=== PATIENT | female | born 1990 | race Caucasian/White ===

== ENCOUNTER 2017-12-12 00:21 | Inpatient (IN) | payer OTHER ==
[~2017-12-12] VITALS: Ht 154.9 cm; Wt 78.9 kg
[2017-12-12] VITALS (7 sets, daily range): BP systolic 115–147; BP diastolic 72–94
[2017-12-12] MEDS: MORPHINE SULFATE 2 MG/ML VIAL. IV PRN ×3 (01:40→20:02)
[2017-12-12] MEDS: ONDANSETRON PF 4 MG/2 ML VIAL. IV PRN ×2 (01:40→22:32)
[2017-12-12] MEDS: IV NORMAL SALINE 1000ML BAG 1,000 ML IV SCH ×3 (01:42→20:01)
[2017-12-12 02:19] LABS: U PREG PATIENT NEGATIVE (NEG)
[2017-12-12] MEDS: CIPROFLOXACIN 400MG PREMIX 200 ML IV SCH ×3 (03:00→19:54)
[2017-12-12] MEDS: ACETAMINOPHEN 325 MG TABLET. PO PRN ×2 (05:21→21:37)
[2017-12-12 05:37] LABS: BASO % 0 % (0-3); EOS # 0.2 x10^3/uL (0.0-0.7); EOS % 2 % (0-3); HEMATOCRIT 35.6 % (36.0-47.0); HEMOGLOBIN 12.6 g/dL (12.0-15.5); LYMPH # 4.6 x10^3/uL (1.0-4.8); LYMPH % 44 % (24-48); MEAN CORPUSCULAR HEMOGLOBIN 30 pg (25-35); MEAN CORPUSCULAR HGB CONC 35 g/dL (31-37); MEAN CORPUSCULAR VOLUME 86 fL (79-100); MONO # 0.6 x10^3/uL (0.0-1.1); MONO % 6 % (0-9); NEUT % 48 % (31-73); PLATELET COUNT 242 x10^3/uL (140-400); RED BLOOD COUNT 4.14 x10^6/uL (3.50-5.40); RED CELL DISTRIBUTION WIDTH 12.9 % (11.5-14.5); WHITE BLOOD COUNT 10.4 x10^3/uL (4.0-11.0)
[2017-12-12] MEDS ORDERED: IV NORMAL SALINE 500ML BAG 500 ML IV ONE (06:00)
[2017-12-12 06:04] LABS: ALBUMIN 3.7 g/dL (3.4-5.0); ALBUMIN/GLOBULIN RATIO 1.1 (1.0-1.7); CALCIUM 8.4 mg/dL (8.5-10.1); CREATININE 0.8 mg/dL (0.6-1.0); GFR 85.4; POTASSIUM 4.2 mmol/L (3.5-5.1); TOTAL BILIRUBIN 0.5 mg/dL (0.2-1.0); TOTAL PROTEIN 7.1 g/dL (6.4-8.2)
[2017-12-12] MEDS ORDERED: IV RINGERS,LACTATED 500ML 500 ML IV ONE (13:45)
--- NOTE | 2017-12-12 13:53 | PDOC2 ---
CONSULT Date of Consult Date of Consult DATE: 12/12/17 TIME: 13:45 Reason for Consult Reason for Consult: symptomatic cholelithiasis Referring Physician Referring Physician: Ye Identification/Chief Complaint Chief Complaint epigastric RUQ pain Source Source: Chart review, Patient History of Present Illness Reason for Visit: 26 yo F with c/o epigastric RUQ pain x 3 days, associated n/V. No previous episodes. Also c/o VELASQUEZ. Seen in [facility]. 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) GI: Irritable bowel disease Rheumatologic: Other (arthritis) Past Surgical History Past Surgical History: , Other (knee and wrist surgery, ) Family History Family History: No Significant Social History Quit (one month ago) ALCOHOL: rare Current Medications Current Medications Current Medications Sodium Chloride 1,000 ml @ 100 mls/hr Q10H IV Last administered on 12/12/17at 09:00; Start 12/12/17 at 02:00 Morphine Sulfate (Morphine Sulfate) 2 mg PRN Q2HR PRN IV SEVERE PAIN Last administered on 12/12/17at 05:13; Start 12/12/17 at 01:30 Ondansetron HCl (Zofran) 4 mg PRN Q4HRS PRN IV NAUSEA/VOMITING 1ST CHOICE Last administered on 12/12/17at 01:40; Start 12/12/17 at 01:30 Metronidazole 100 ml @ 100 mls/hr Q12HR IV Last administered on 12/12/17at 03: 01; Start 12/12/17 at 02:00 Ciprofloxacin/ Dextrose 200 ml @ 200 mls/hr Q12HR IV Last administered on 12/12at 03:00; Start 12/12/17 at 02:00 Acetaminophen (Tylenol) 650 mg PRN Q6HRS PRN PO MILD PAIN / TEMP Last administered on 12/12/17at 05:21; Start 12/12/17 at 05:30 Sodium Chloride 500 ml @ 500 mls/hr 1X ONCE IV Last administered on at 05:39; Start 12/12/17 at 06:00; Stop 12/12/17 at 06:59; Status DC Ondansetron HCl (Zofran) 4 mg PRN Q6HRS PRN IV NAUSEA/VOMITING; Start 12/13/17 at 07:00; Stop 12/13/17 at 18:00 Fentanyl Citrate (Fentanyl 2ml Vial) 25 mcg PRN Q5MIN PRN IV MILD PAIN; Start 12/13/17 at 07:00; Stop 12/13/17 at 18:00 Fentanyl Citrate (Fentanyl 2ml Vial) 50 mcg PRN Q5MIN PRN IV MODERATE TO SEVERE PAIN; Start 12/13/17 at 07:00; Stop 12/13/17 at 18:00 Morphine Sulfate (Morphine Sulfate) 1 mg PRN Q10MIN PRN IV SEVERE PAIN; Start 12/13/17 at 07:00; Stop 12/13/17 at 18:00 Ringer's Solution 1,000 ml @ 30 mls/hr Q24H IV ; Start 12/13/17 at 07:00; Stop 12/13/17 at 18:59 Lidocaine HCl (Xylocaine-Mpf 1% 2ml Vial) 2 ml PRN 1X PRN ID IV START; Start at 07:00; Stop 12/13/17 at 18:00 Hydromorphone HCl (Dilaudid) 0.5 mg PRN Q10MIN PRN IV SEV PAIN, Second choice; Start 12/13/17 at 07:00; Stop 12/13/17 at 18:00 Prochlorperazine Edisylate (Compazine) 5 mg PACU PRN PRN IV NAUSEA, MRX1; Start 12/13/17 at 07:00; Stop 12/13/17 at 18:00 Allergies Allergies: Coded Allergies: aspirin (Verified Allergy, Intermediate, 12/12/17) corn (Verified Allergy, Intermediate, 12/12/17) lactase (Verified Allergy, Intermediate, 12/12/17) lactose (Verified Allergy, Intermediate, 12/12/17) tomato (Verified Allergy, Intermediate, 12/12/17) Uncoded Allergies: spicey foods (Allergy, Intermediate, 12/12/17) ROS HEENT: YES: Heacaches Gastrointestinal: Yes Nausea, Yes Vomiting, Yes Abdominal Pain Physical Exam General: Alert, Oriented X3, Cooperative, mild distress HEENT: Atraumatic Lungs: Normal air movement Abdomen: Soft, Other (TTP RUQ) Extremities: No clubbing, No cyanosis Skin: No rashes, No breakdown Neuro: Normal speech, Sensation intact Psych/Mental Status: Mental status NL, Mood NL Vitals VITALS Vital Signs Date Time Temp Pulse Resp B/P (MAP) Pulse Ox O2 Delivery O2 Flow Rate FiO2 12/12/17 11:00 98.2 97 16 128/85 (99) 96 Room Air 98.2 Labs Labs Laboratory Tests Test 12/12/17 01:30 12/12/17 05:30 Urine Test Negative (NEG) White Blood Count 10.4 x10^3/uL (4.0-11.0) Red Blood Count 4.14 x10^6/uL (3.50-5.40) Hemoglobin 12.6 g/dL (12.0-15.5) Hematocrit 35.6 % (36.0-47.0) Mean Corpuscular Volume 86 fL (79-100) Mean Corpuscular Hemoglobin 30 pg (25-35) Mean Corpuscular Hemoglobin Concent 35 g/dL (31-37) Red Cell Distribution Width 12.9 % (11.5-14.5) Platelet Count 242 x10^3/uL (140-400) Neutrophils (%) (Auto) 48 % (31-73) Lymphocytes (%) (Auto) 44 % (24-48) Monocytes (%) (Auto) 6 % (0-9) Eosinophils (%) (Auto) 2 % (0-3) Basophils (%) (Auto) 0 % (0-3) Neutrophils # (Auto) 5.0 x10^3uL (1.8-7.7) Lymphocytes # (Auto) 4.6 x10^3/uL (1.0-4.8) Monocytes # (Auto) 0.6 x10^3/uL (0.0-1.1) Eosinophils # (Auto) 0.2 x10^3/uL (0.0-0.7) Basophils # (Auto) 0.0 x10^3/uL (0.0-0.2) Sodium Level 139 mmol/L (136-145) Potassium Level 4.2 mmol/L (3.5-5.1) Chloride Level 105 mmol/L (98-107) Carbon Dioxide Level 26 mmol/L (21-32) Anion Gap 8 (6-14) Blood Urea Nitrogen 5 mg/dL (7-20) Creatinine 0.8 mg/dL (0.6-1.0) Estimated GFR (Cockcroft-Gault) 85.4 BUN/Creatinine Ratio 6 (6-20) Glucose Level 94 mg/dL (70-99) Lactic Acid Level 0.9 mmol/L (0.4-2.0) Calcium Level 8.4 mg/dL (8.5-10.1) Total Bilirubin 0.5 mg/dL (0.2-1.0) Aspartate Amino Transf (AST/SGOT) 33 U/L (15-37) Alanine Aminotransferase (ALT/SGPT) 37 U/L (14-59) Alkaline Phosphatase 112 U/L (46-116) Total Protein 7.1 g/dL (6.4-8.2) Albumin 3.7 g/dL (3.4-5.0) Albumin/Globulin Ratio 1.1 (1.0-1.7) Laboratory Tests Test 12/12/17 01:30 12/12/17 05:30 Urine Test Negative (NEG) White Blood Count 10.4 x10^3/uL (4.0-11.0) Red Blood Count 4.14 x10^6/uL (3.50-5.40) Hemoglobin 12.6 g/dL (12.0-15.5) Hematocrit 35.6 % (36.0-47.0) Mean Corpuscular Volume 86 fL (79-100) Mean Corpuscular Hemoglobin 30 pg (25-35) Mean Corpuscular Hemoglobin Concent 35 g/dL (31-37) Red Cell Distribution Width 12.9 % (11.5-14.5) Platelet Count 242 x10^3/uL (140-400) Neutrophils (%) (Auto) 48 % (31-73) Lymphocytes (%) (Auto) 44 % (24-48) Monocytes (%) (Auto) 6 % (0-9) Eosinophils (%) (Auto) 2 % (0-3) Basophils (%) (Auto) 0 % (0-3) Neutrophils # (Auto) 5.0 x10^3uL (1.8-7.7) Lymphocytes # (Auto) 4.6 x10^3/uL (1.0-4.8) Monocytes # (Auto) 0.6 x10^3/uL (0.0-1.1) Eosinophils # (Auto) 0.2 x10^3/uL (0.0-0.7) Basophils # (Auto) 0.0 x10^3/uL (0.0-0.2) Sodium Level 139 mmol/L (136-145) Potassium Level 4.2 mmol/L (3.5-5.1) Chloride Level 105 mmol/L (98-107) Carbon Dioxide Level 26 mmol/L (21-32) Anion Gap 8 (6-14) Blood Urea Nitrogen 5 mg/dL (7-20) Creatinine 0.8 mg/dL (0.6-1.0) Estimated GFR (Cockcroft-Gault) 85.4 BUN/Creatinine Ratio 6 (6-20) Glucose Level 94 mg/dL (70-99) Lactic Acid Level 0.9 mmol/L (0.4-2.0) Calcium Level 8.4 mg/dL (8.5-10.1) Total Bilirubin 0.5 mg/dL (0.2-1.0) Aspartate Amino Transf (AST/SGOT) 33 U/L (15-37) Alanine Aminotransferase (ALT/SGPT) 37 U/L (14-59) Alkaline Phosphatase 112 U/L (46-116) Total Protein 7.1 g/dL (6.4-8.2) Albumin 3.7 g/dL (3.4-5.0) Albumin/Globulin Ratio 1.1 (1.0-1.7) Images Images US at [facility]-gallstones, fatty liver, mildly dilated CBD Assessment/Plan Assessment/Plan Symptomatic cholelithiasis Suspect pain is secondary to calculous cholecystitis, however, given past comorbidity, recommend CT head and cards evaluation prior to surgery. Will continue IV abx and plan surgery in Am. WBC improved over [facility]. Will also check lipase. R/R/B/A d/w pt for laparoscopic cholecystectomy with cholangiogram in Am 12/13- 1029. Risks, including, but not limited to: bleeding, infection, damage to surrounding structures, risk of anesthesia, risk of open. She appears to understand, her questions are answered and she elects to proceed. Thanks for consult! DANIELLA BEGUM MD Dec 12, 2017 13:53
--- NOTE | 2017-12-12 14:35 | RAD ---
CT of the head without contrast, 12/12/2017: HISTORY: Headache, known AVM No previous studies are available at this time for comparison purposes. The ventricles are within normal limits in size. There is no shift of the midline structures. There is no evidence of acute intracranial hemorrhage or mass effect. IMPRESSION: The CT of the head without contrast reveals no significant abnormality. Electronically signed by: Ramsey Elam MD (12/12/2017 2:32 PM) [facility] [place]
--- NOTE | 2017-12-12 14:56 | PDOC1 ---
History and Physical Date of Admission Date of Admission 12/11/18 Identification/Chief Complaint Chief Complaint abd pain Source Source: Chart review, Patient History of Present Illness History of Present Illness 26yo F, came for abd pain x1d. Pt started to feel RUQ pain, constant, sharp, 5/10 from yesterday, no radiating , had non bloody or bile N/V, bm is ok. no fever, + chills. no cough ,sob, chest pain. remote h/o stroke when delivery her baby, no neurologic deficit. US at [facility] ER showed cholelithiasis. 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) GI: Irritable bowel disease Rheumatologic: Other (arthritis) Past Surgical History Past Surgical History: , Other (knee and wrist surgery, ) Family History Family History: No Significant Social History Smoke: No ALCOHOL: rare Current Medications Current Medications Current Medications Medications (Trade) Dose Ordered Sig/Amarilis Start Time Stop Time Status Last Admin Dose Admin Acetaminophen (Tylenol) 650 mg PRN Q6HRS PRN 12/12/17 05:30 12/12/17 05:21 650 MG Cefazolin Sodium/ Dextrose 50 ml @ 100 mls/hr 1X PREOP 12/12/17 13:45 Ciprofloxacin/ Dextrose 200 ml @ 200 mls/hr Q12HR 12/12/17 02:00 12/12/17 03:00 200 MLS/HR Fentanyl Citrate (Fentanyl 2ml Vial) 50 mcg PRN Q5MIN PRN 12/13/17 07:00 12/13/17 18:00 Hydromorphone HCl (Dilaudid) 0.5 mg PRN Q10MIN PRN 12/13/17 07:00 12/13/17 18:00 Lidocaine HCl (Xylocaine-Mpf 1% 2ml Vial) 2 ml PRN 1X PRN 12/13/17 07:00 12/13/17 18:00 Metronidazole 100 ml @ 100 mls/hr Q12HR 12/12/17 02:00 12/12/17 03:01 100 MLS/HR Morphine Sulfate (Morphine Sulfate) 1 mg PRN Q10MIN PRN 12/13/17 07:00 12/13/17 18:00 Ondansetron HCl (Zofran) 4 mg PRN Q6HRS PRN 12/13/17 07:00 12/13/17 18:00 Prochlorperazine Edisylate (Compazine) 5 mg PACU PRN PRN 12/13/17 07:00 12/13/17 18:00 Ringer's Solution 500 ml @ 500 mls/hr 1X ONCE 12/12/17 13:45 12/12/17 14:44 DC Sodium Chloride 500 ml @ 500 mls/hr 1X ONCE 12/12/17 06:00 12/12/17 06:59 DC 12/12/17 05:39 500 MLS/HR Allergies Allergies Allergies Coded Allergies Type Severity Reaction Last Updated Verified aspirin Allergy Intermediate 12/12/17 Yes corn Allergy Intermediate 12/12/17 Yes lactase Allergy Intermediate 12/12/17 Yes lactose Allergy Intermediate 12/12/17 Yes tomato Allergy Intermediate 12/12/17 Yes Uncoded Allergies Type Severity Reaction Last Updated Verified spicey foods Allergy Intermediate 12/12/17 ROS Review of System CONSTITUTIONAL: No fever or chills EYES: No recent changes SKIN: No rash or itching CARDIOVASCULAR: No chest pain, syncope, palpitations, or edema RESPIRATORY: No SOB or cough GASTROINTESTINAL: No nausea, vomiting or abdominal pain NEUROLOGICAL: No headaches or weakness ENDOCRINE: No cold or heat intolerance GENITOURINARY: No urgency or frequency of urination MUSCULOSKELETAL: No back pain or joint pain LYMPHATICS: No enlarged lymph nodes PSYCHIATRIC: No anxiety or depression Physical Exam Physical Exam GEN.: No apparent distress. Alert and oriented. HEENT: Head is normocephalic, atraumatic NECK: Supple. LUNGS: Clear to auscultation. HEART: RRR, S1, S2 present. Peripheral pulses intact ABDOMEN: Soft, Positive bowel sounds. difuse abd pain, most at RUQ. no guarding or rebound. EXTREMITIES: Without any cyanosis. NEUROLOGIC: Normal speech, normal tone PSYCHIATRIC: Normal affect, normal mood. SKIN: No ulcerations Vitals Vitals Vital Signs Date Time Temp Pulse Resp B/P (MAP) Pulse Ox O2 Delivery O2 Flow Rate FiO2 12/12/17 11:00 98.2 97 16 128/85 (99) 96 Room Air 98.2 Labs Labs Laboratory Tests Test 12/12/17 01:30 12/12/17 05:30 Urine Test Negative (NEG) White Blood Count 10.4 x10^3/uL (4.0-11.0) Red Blood Count 4.14 x10^6/uL (3.50-5.40) Hemoglobin 12.6 g/dL (12.0-15.5) Hematocrit 35.6 % (36.0-47.0) Mean Corpuscular Volume 86 fL (79-100) Mean Corpuscular Hemoglobin 30 pg (25-35) Mean Corpuscular Hemoglobin Concent 35 g/dL (31-37) Red Cell Distribution Width 12.9 % (11.5-14.5) Platelet Count 242 x10^3/uL (140-400) Neutrophils (%) (Auto) 48 % (31-73) Lymphocytes (%) (Auto) 44 % (24-48) Monocytes (%) (Auto) 6 % (0-9) Eosinophils (%) (Auto) 2 % (0-3) Basophils (%) (Auto) 0 % (0-3) Neutrophils # (Auto) 5.0 x10^3uL (1.8-7.7) Lymphocytes # (Auto) 4.6 x10^3/uL (1.0-4.8) Monocytes # (Auto) 0.6 x10^3/uL (0.0-1.1) Eosinophils # (Auto) 0.2 x10^3/uL (0.0-0.7) Basophils # (Auto) 0.0 x10^3/uL (0.0-0.2) Sodium Level 139 mmol/L (136-145) Potassium Level 4.2 mmol/L (3.5-5.1) Chloride Level 105 mmol/L (98-107) Carbon Dioxide Level 26 mmol/L (21-32) Anion Gap 8 (6-14) Blood Urea Nitrogen 5 mg/dL (7-20) Creatinine 0.8 mg/dL (0.6-1.0) Estimated GFR (Cockcroft-Gault) 85.4 BUN/Creatinine Ratio 6 (6-20) Glucose Level 94 mg/dL (70-99) Lactic Acid Level 0.9 mmol/L (0.4-2.0) Calcium Level 8.4 mg/dL (8.5-10.1) Total Bilirubin 0.5 mg/dL (0.2-1.0) Aspartate Amino Transf (AST/SGOT) 33 U/L (15-37) Alanine Aminotransferase (ALT/SGPT) 37 U/L (14-59) Alkaline Phosphatase 112 U/L (46-116) Total Protein 7.1 g/dL (6.4-8.2) Albumin 3.7 g/dL (3.4-5.0) Albumin/Globulin Ratio 1.1 (1.0-1.7) Lipase 148 U/L (73-393) Laboratory Tests Test 12/12/17 01:30 12/12/17 05:30 Urine Test Negative (NEG) White Blood Count 10.4 x10^3/uL (4.0-11.0) Red Blood Count 4.14 x10^6/uL (3.50-5.40) Hemoglobin 12.6 g/dL (12.0-15.5) Hematocrit 35.6 % (36.0-47.0) Mean Corpuscular Volume 86 fL (79-100) Mean Corpuscular Hemoglobin 30 pg (25-35) Mean Corpuscular Hemoglobin Concent 35 g/dL (31-37) Red Cell Distribution Width 12.9 % (11.5-14.5) Platelet Count 242 x10^3/uL (140-400) Neutrophils (%) (Auto) 48 % (31-73) Lymphocytes (%) (Auto) 44 % (24-48) Monocytes (%) (Auto) 6 % (0-9) Eosinophils (%) (Auto) 2 % (0-3) Basophils (%) (Auto) 0 % (0-3) Neutrophils # (Auto) 5.0 x10^3uL (1.8-7.7) Lymphocytes # (Auto) 4.6 x10^3/uL (1.0-4.8) Monocytes # (Auto) 0.6 x10^3/uL (0.0-1.1) Eosinophils # (Auto) 0.2 x10^3/uL (0.0-0.7) Basophils # (Auto) 0.0 x10^3/uL (0.0-0.2) Sodium Level 139 mmol/L (136-145) Potassium Level 4.2 mmol/L (3.5-5.1) Chloride Level 105 mmol/L (98-107) Carbon Dioxide Level 26 mmol/L (21-32) Anion Gap 8 (6-14) Blood Urea Nitrogen 5 mg/dL (7-20) Creatinine 0.8 mg/dL (0.6-1.0) Estimated GFR (Cockcroft-Gault) 85.4 BUN/Creatinine Ratio 6 (6-20) Glucose Level 94 mg/dL (70-99) Lactic Acid Level 0.9 mmol/L (0.4-2.0) Calcium Level 8.4 mg/dL (8.5-10.1) Total Bilirubin 0.5 mg/dL (0.2-1.0) Aspartate Amino Transf (AST/SGOT) 33 U/L (15-37) Alanine Aminotransferase (ALT/SGPT) 37 U/L (14-59) Alkaline Phosphatase 112 U/L (46-116) Total Protein 7.1 g/dL (6.4-8.2) Albumin 3.7 g/dL (3.4-5.0) Albumin/Globulin Ratio 1.1 (1.0-1.7) Lipase 148 U/L (73-393) VTE Prophylaxis Ordered VTE Prophylaxis Devices: Yes VTE Pharmacological Prophylaxi: Yes Assessment/Plan Assessment/Plan ABD pain with cholelithiasis possible acute cholecystitis morbid obesity h/o stroke wo deficit h/o seizure plan: fu with sx, sx tmr card consult pre op ivf clear liquid diet pain control dvt ppx NPO MN head ct neg. DAVID SOTELO MD Dec 12, 2017 14:56
[2017-12-12] MEDS: HEPARIN PF for SUB-Q USE 5,000 UNIT/0.5 ML VIAL. SQ SCH ×2 (15:00→19:56)
--- NOTE | 2017-12-12 15:06 | EKG ---
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
--- NOTE | 2017-12-12 15:15 | PDOC2 ---
CARDIAC CONSULT DATE OF CONSULT Date of Consult DATE: 12/12/17 TIME: 14:59 REASON FOR CONSULT Reason for Consult: Hx of stroke surgery planned. REFERRING PHYSICIAN Referring Physician: Thompson SOURCE Source: Chart review, Patient HISTORY OF PRESENT ILLNESS HISTORY OF PRESENT ILLNESS This ia a pleasant 26 yo female admitted for complains of nausea and vomiting and abdominal pain. Reports that she Went to [facility] and was noted with gallstones and needing lap viridiana. Consult ifor hx of stroke and this occurred in 2012 with her and end up with C section. No significant explanation in regards to her stroke but was later found 2 yrs later that she has an AVM in her brain. she also has hx of seizures and has 3 medications for it including depakote. she also sustained some cystic sac injury from epidural in her lower back from that . She does not have any cardiac history. No CP, SOA and no exertional CP nor ESCAMILLA. PAST MEDICAL HISTORY Cardiovascular: No pertinent hx Pulmonary: No pertinent hx CENTRAL NERVOUS SYSTEM: CVA (related to and later noted with AVM) GI: No pertinent hx Heme/Onc: No pertinent hx Hepatobiliary: Cholelithiasis Psych: No pertinent hx Musculoskeletal: Other (None) Rheumatologic: No pertinent hx Infectious disease: No pertinent hx ENT: No pertinent hx Renal/: No pertinent hx Endocrine: No pertinent hx Dermatology: No pertinent hx PAST SURGICAL HISTORY Past Surgical History: , Tonsillectomy, Other (left knee and left wirst repair) FAMILY HISTORY Family History noncontributory SOCIAL HISTORY Smoke: Quit (last ) ALCOHOL: none Drugs: None Lives: with Family CURRENT MEDICATIONS CURRENT MEDICATIONS Current Medications Medications (Trade) Dose Ordered Sig/Amarilis Route PRN Reason Start Time Stop Time Status Last Admin Dose Admin Sodium Chloride 1,000 ml @ 100 mls/hr Q10H IV 12/12/17 02:00 12/12/17 09:00 Morphine Sulfate (Morphine Sulfate) 2 mg PRN Q2HR PRN IV SEVERE PAIN 12/12/17 01:30 12/12/17 05:13 Ondansetron HCl (Zofran) 4 mg PRN Q4HRS PRN IV NAUSEA/VOMITING 1ST CHOICE 12/12/17 01:30 12/12/17 01:40 Metronidazole 100 ml @ 100 mls/hr Q12HR IV 12/12/17 02:00 12/12/17 03:01 Ciprofloxacin/ Dextrose 200 ml @ 200 mls/hr Q12HR IV 12/12/17 02:00 12/12/17 03:00 Acetaminophen (Tylenol) 650 mg PRN Q6HRS PRN PO MILD PAIN / TEMP 12/12/17 05:30 12/12/17 05:21 Sodium Chloride 500 ml @ 500 mls/hr 1X ONCE IV 12/12/17 06:00 12/12/17 06:59 DC 12/12/17 05:39 ALLERGIES ALLERGIES: Coded Allergies: aspirin (Verified Allergy, Intermediate, 12/12/17) corn (Verified Allergy, Intermediate, 12/12/17) lactase (Verified Allergy, Intermediate, 12/12/17) lactose (Verified Allergy, Intermediate, 12/12/17) tomato (Verified Allergy, Intermediate, 12/12/17) Uncoded Allergies: spicey foods (Allergy, Intermediate, 12/12/17) ROS Review of System 14 point ROS evaluated with pertinent positives noted per HPI PHYSICAL EXAM General: Alert, Oriented X3, Cooperative, No acute distress HEENT: Atraumatic, Mucous membr. moist/pink Lungs: Clear to auscultation, Normal air movement Heart: Regular rate (SR), Normal S1, Normal S2, No murmurs Abdomen: Soft, Other (RUQ tenderness) Extremities: No cyanosis, No edema Skin: No breakdown, No significant lesion Neuro: Normal speech, Sensation intact Psych/Mental Status: Mental status NL, Mood NL MUSCULOSKELETAL: Full range of motion without pain VITALS VITALS Vital Signs Date Time Temp Pulse Resp B/P (MAP) Pulse Ox O2 Delivery O2 Flow Rate FiO2 12/12/17 11:00 98.2 97 16 128/85 (99) 96 Room Air 98.2 LABS Lab: Laboratory Tests Test 12/12/17 01:30 12/12/17 05:30 Urine Test Negative (NEG) White Blood Count 10.4 x10^3/uL (4.0-11.0) Red Blood Count 4.14 x10^6/uL (3.50-5.40) Hemoglobin 12.6 g/dL (12.0-15.5) Hematocrit 35.6 % (36.0-47.0) Mean Corpuscular Volume 86 fL (79-100) Mean Corpuscular Hemoglobin 30 pg (25-35) Mean Corpuscular Hemoglobin Concent 35 g/dL (31-37) Red Cell Distribution Width 12.9 % (11.5-14.5) Platelet Count 242 x10^3/uL (140-400) Neutrophils (%) (Auto) 48 % (31-73) Lymphocytes (%) (Auto) 44 % (24-48) Monocytes (%) (Auto) 6 % (0-9) Eosinophils (%) (Auto) 2 % (0-3) Basophils (%) (Auto) 0 % (0-3) Neutrophils # (Auto) 5.0 x10^3uL (1.8-7.7) Lymphocytes # (Auto) 4.6 x10^3/uL (1.0-4.8) Monocytes # (Auto) 0.6 x10^3/uL (0.0-1.1) Eosinophils # (Auto) 0.2 x10^3/uL (0.0-0.7) Basophils # (Auto) 0.0 x10^3/uL (0.0-0.2) Sodium Level 139 mmol/L (136-145) Potassium Level 4.2 mmol/L (3.5-5.1) Chloride Level 105 mmol/L (98-107) Carbon Dioxide Level 26 mmol/L (21-32) Anion Gap 8 (6-14) Blood Urea Nitrogen 5 mg/dL (7-20) Creatinine 0.8 mg/dL (0.6-1.0) Estimated GFR (Cockcroft-Gault) 85.4 BUN/Creatinine Ratio 6 (6-20) Glucose Level 94 mg/dL (70-99) Lactic Acid Level 0.9 mmol/L (0.4-2.0) Calcium Level 8.4 mg/dL (8.5-10.1) Total Bilirubin 0.5 mg/dL (0.2-1.0) Aspartate Amino Transf (AST/SGOT) 33 U/L (15-37) Alanine Aminotransferase (ALT/SGPT) 37 U/L (14-59) Alkaline Phosphatase 112 U/L (46-116) Total Protein 7.1 g/dL (6.4-8.2) Albumin 3.7 g/dL (3.4-5.0) Albumin/Globulin Ratio 1.1 (1.0-1.7) Lipase 148 U/L (73-393) ASSESSMENT/PLAN ASSESSMENT/PLAN 1. Preop cardiac eval: METS>10, no cardiac symptoms. Low risk for perioperative CV events for noncardiac surgery. She is medically satisfactory to proceed with lap viridiana. Baseline EKG. 2. Hx of stroke related to her in 2012 and later noted with AVM 3. Hx of seizure: on 3 seizure meds and was last seen by neurology at [place] >1 yr ago. Would recommend neurology consult. SAIMA ROJAS AUDIOVISUAL TECHNICIAN Dec 12, 2017 15:15
--- NOTE | 2017-12-12 16:31 | CARD ---
MR#: [id number] Date of Study: 12/12/2017 Ordering Physician: KITA MADRIGAL, Referring Physician: THAO TYSON, Tech: Shannon Lezama HALLIE APPROVED REPORT EXAM: Two-dimensional and M-mode echocardiogram with Doppler and color Doppler. Other Information Quality : Good INDICATION Pre-Op 2D DIMENSIONS RVDd2.7 (2.9-3.5cm)Left Atrium(2D)3.1 (1.6-4.0cm) IVSd0.9 (0.7-1.1cm)Aortic Root(2D)2.6 (2.0-3.7cm) LVDd5.3 (3.9-5.9cm)LVOT Diameter2.0 (1.8-2.4cm) PWd0.8 (0.7-1.1cm)LVDs3.3 (2.5-4.0cm) FS (%) 30.0 %SV90.6 ml LVEF(%)60.0 (>50%) Aortic Valve AoV Peak Myron.117.9cm/sAoV VTI23.9cm AO Peak GR.5.6mmHgLVOT Peak Myron.114.8cm/s LVOT VTI 23.51cmAO Mean GR.3mmHg CA (VMAX)3.22qh6UBN (VTI)3.05cm2 Mitral Valve MV E Aybmtavt29.9cm/sMV DECEL [id number] MV A Hdpluxyk28.0cm/sMV QRH20mj E/A Ratio1.5MVA (PHT)2.79cm2 TDI E/Medial E'7.4 Tricuspid Valve TR P. Nbpzzyrn359uf/sRAP HNQWBAWK0tgLk TR Peak Gr.82lgBbQBGA49seAf Pulmonary Vein S1 Gffqidua41.1cm/sD2 Isnqbydz85.0cm/s LEFT VENTRICLE The left ventricle is normal size. There is normal left ventricular wall thickness. The left ventricu lar systolic function is normal and the ejection fraction is within normal range. The Ejection Fracti on is 55-60%. There is normal LV segmental wall motion. Transmitral Doppler flow pattern is Grade II- pseudonormal filling dynamics. RIGHT VENTRICLE The right ventricle is normal size. The right ventricular systolic function is normal. ATRIA The left atrium size is normal. The right atrium size is normal. The interatrial septum is intact wit h no evidence for an atrial septal defect or patent foramen ovale as noted on 2-D or Doppler imaging. AORTIC VALVE The aortic valve is calcified but opens well. Doppler and Color Flow revealed no significant aortic r egurgitation. There is no significant aortic valvular stenosis. MITRAL VALVE The mitral valve is normal in structure and function. There is no evidence of mitral valve prolapse. There is no mitral valve stenosis. Doppler and Color-flow revealed mild mitral regurgitation. TRICUSPID VALVE The tricuspid valve is normal in structure and function. Doppler and Color Flow revealed trace tricus pid regurgitation. The PA pressure was estimated at 16 mmHg. There is no tricuspid valve stenosis. PULMONIC VALVE The pulmonary valve is normal in structure and function. Doppler and Color Flow revealed trace pulmon ic valvular regurgitation. There is no pulmonic valvular stenosis. GREAT VESSELS The aortic root is normal in size. The ascending aorta is normal in size. The IVC is normal in size a nd collapses >50% with inspiration. PERICARDIAL EFFUSION There is no evidence of significant pericardial effusion. Critical Notification Critical Value: No <Conclusion> The left ventricle is normal size. The left ventricular systolic function is normal and the ejection fraction is within normal range. The Ejection Fraction is 55-60%. There is no significant aortic valvular stenosis. Doppler and Color Flow revealed no significant aortic regurgitation. Doppler and Color-flow revealed mild mitral regurgitation. Doppler and Color Flow revealed trace tricuspid regurgitation. The PA pressure was estimated at 16 mmHg. Signed by : Kita Madrigal MD Electronically Approved : 12/12/2017 16:29:56
[2017-12-12] MEDS ORDERED: HYDR50CA PO (17:08)
[2017-12-12] MEDS ORDERED: OXCA300T19 PO (17:08)
[2017-12-12] MEDS ORDERED: CELE100C PO (17:08)
[2017-12-12] MEDS ORDERED: TIZA4TAB PO (17:08)
[2017-12-12] MEDS ORDERED: VORT10TA PO (17:08)
[2017-12-12] MEDS ORDERED: BACL10TA PO (17:08)
[2017-12-12] MEDS: OXcarbazepine 300 MG TABLET PO SCH (19:59)
[2017-12-12] MEDS: HYDROcodone/APAP 5/325MG 1 TAB TABLET PO PRN (20:01)
[2017-12-12] MEDS: Vortioxetine Hydrobromide (Trintellix) 10 MG PO SCH (20:02)
[2017-12-13] VITALS (9 sets, daily range): BP systolic 123–141; BP diastolic 72–88
[2017-12-13 04:28] LABS: BASO % 0 % (0-3); EOS # 0.2 x10^3/uL (0.0-0.7); EOS % 3 % (0-3); HEMATOCRIT 34.9 % (36.0-47.0); LYMPH # 3.5 x10^3/uL (1.0-4.8); LYMPH % 46 % (24-48); MEAN CORPUSCULAR HEMOGLOBIN 30 pg (25-35); MEAN CORPUSCULAR HGB CONC 34 g/dL (31-37); MEAN CORPUSCULAR VOLUME 87 fL (79-100); MONO # 0.3 x10^3/uL (0.0-1.1); MONO % 5 % (0-9); NEUT # 3.6 x10^3uL (1.8-7.7); NEUT % 47 % (31-73); PLATELET COUNT 227 x10^3/uL (140-400); RED BLOOD COUNT 4.01 x10^6/uL (3.50-5.40); WHITE BLOOD COUNT 7.6 x10^3/uL (4.0-11.0)
[2017-12-13 05:23] LABS: ALBUMIN 3.5 g/dL (3.4-5.0); CALCIUM 8.4 mg/dL (8.5-10.1); CREATININE 0.7 mg/dL (0.6-1.0); DIRECT BILIRUBIN 0.3 mg/dL (0.0-0.2); GFR 99.6; POTASSIUM 3.8 mmol/L (3.5-5.1); TOTAL BILIRUBIN 0.6 mg/dL (0.2-1.0); TOTAL PROTEIN 6.7 g/dL (6.4-8.2)
[2017-12-13] MEDS: IV NORMAL SALINE 1000ML BAG 1,000 ML IV SCH ×2 (05:37→18:00)
[2017-12-13] MEDS: HEPARIN PF for SUB-Q USE 5,000 UNIT/0.5 ML VIAL. SQ SCH ×3 (05:45→22:00)
[2017-12-13] MEDS ORDERED: LIDOCAINE 1% PF 2 ML VIAL. ID PRN (07:00)
[2017-12-13] MEDS ORDERED: ONDANSETRON PF 4 MG/2 ML VIAL. IV PRN (07:00)
[2017-12-13] MEDS ORDERED: PROCHLORPERAZINE 10 MG/2 ML VIAL. IV PRN (07:00)
[2017-12-13] MEDS ORDERED: IV RINGERS,LACTATED 1000ML 1,000 ML IV SCH (07:00)
[2017-12-13] MEDS ORDERED: fentaNYL PF VIAL 100 MCG/2 ML VIAL IV PRN (07:00)
[2017-12-13] MEDS ORDERED: HYDROmorphone 2 MG/ML VIAL IV PRN (07:00)
[2017-12-13] MEDS: CIPROFLOXACIN 400MG PREMIX 200 ML IV SCH ×2 (07:56→20:24)
[2017-12-13] MEDS ORDERED: BISACODYL 10 MG SUPP.RECT. ONE (09:12)
[2017-12-13] MEDS ORDERED: SURGICEL HEMOSTAT 2X3 EACH. ONE (09:12)
[2017-12-13] MEDS ORDERED: IOHEXOL 300 MG/ML 100ML VIAL. ONE (09:12)
[2017-12-13] MEDS ORDERED: BUPIVAC MPF-EPI 0.5%-1:200000 30 ML VIAL. ONE (09:12)
[2017-12-13] MEDS ORDERED: ONDANSETRON PF 4 MG/2 ML VIAL. ONE (09:40)
[2017-12-13] MEDS ORDERED: DEXAMETHASONE SOD PHOS 20 MG/5 ML VIAL. ONE (09:40)
[2017-12-13] MEDS ORDERED: PROPOFOL 20 ML IV ONE (09:40)
[2017-12-13] MEDS ORDERED: fentaNYL PF VIAL 100 MCG/2 ML VIAL ONE ×4 (09:40→12:56)
[2017-12-13] MEDS ORDERED: ROCURONIUM 50 MG/5 ML VIAL. ONE (09:40)
[2017-12-13] MEDS ORDERED: MIDAZOLAM HCL/PF 2 MG/2 ML VIAL. ONE (09:41)
[2017-12-13] MEDS ORDERED: SUCCINYLCHOLINE 200 MG/10 ML VIAL. ONE (10:52)
--- NOTE | 2017-12-13 10:52 | PDOC ---
SURGICAL PROGRESS NOTE Subjective Pre-Op Note 26 yo F with symptomatic cholelithiasis TO OR for laparoscopic versus open cholecystectomy with cholangiogram R/R/B/A d/w pt. Risks, including, but not limited to: bleeding, infection, damage to surrounding structures, risk of anesthesia, risk of open. She appears to understand, her questions are answered and she elects to proceed. Appreciate cards eval, CT head negative. Vital Signs Vital Signs Date Time Temp Pulse Resp B/P (MAP) Pulse Ox O2 Delivery O2 Flow Rate FiO2 12/13/17 09:45 97.7 84 14 123/80 97 Room Air 97.7 I&O Intake and Output 12/13/17 07:00 Intake Total 0 ml Balance 0 ml Intake Oral 0 ml # Voids 8 Labs Laboratory Tests Test 12/12/17 01:30 12/12/17 05:30 12/13/17 03:15 Urine Test Negative (NEG) White Blood Count 10.4 x10^3/uL (4.0-11.0) 7.6 x10^3/uL (4.0-11.0) Red Blood Count 4.14 x10^6/uL (3.50-5.40) 4.01 x10^6/uL (3.50-5.40) Hemoglobin 12.6 g/dL (12.0-15.5) 12.0 g/dL (12.0-15.5) Hematocrit 35.6 % (36.0-47.0) 34.9 % (36.0-47.0) Mean Corpuscular Volume 86 fL (79-100) 87 fL (79-100) Mean Corpuscular Hemoglobin 30 pg (25-35) 30 pg (25-35) Mean Corpuscular Hemoglobin Concent 35 g/dL (31-37) 34 g/dL (31-37) Red Cell Distribution Width 12.9 % (11.5-14.5) 13.0 % (11.5-14.5) Platelet Count 242 x10^3/uL (140-400) 227 x10^3/uL (140-400) Neutrophils (%) (Auto) 48 % (31-73) 47 % (31-73) Lymphocytes (%) (Auto) 44 % (24-48) 46 % (24-48) Monocytes (%) (Auto) 6 % (0-9) 5 % (0-9) Eosinophils (%) (Auto) 2 % (0-3) 3 % (0-3) Basophils (%) (Auto) 0 % (0-3) 0 % (0-3) Neutrophils # (Auto) 5.0 x10^3uL (1.8-7.7) 3.6 x10^3uL (1.8-7.7) Lymphocytes # (Auto) 4.6 x10^3/uL (1.0-4.8) 3.5 x10^3/uL (1.0-4.8) Monocytes # (Auto) 0.6 x10^3/uL (0.0-1.1) 0.3 x10^3/uL (0.0-1.1) Eosinophils # (Auto) 0.2 x10^3/uL (0.0-0.7) 0.2 x10^3/uL (0.0-0.7) Basophils # (Auto) 0.0 x10^3/uL (0.0-0.2) 0.0 x10^3/uL (0.0-0.2) Sodium Level 139 mmol/L (136-145) 140 mmol/L (136-145) Potassium Level 4.2 mmol/L (3.5-5.1) 3.8 mmol/L (3.5-5.1) Chloride Level 105 mmol/L (98-107) 105 mmol/L (98-107) Carbon Dioxide Level 26 mmol/L (21-32) 23 mmol/L (21-32) Anion Gap 8 (6-14) 12 (6-14) Blood Urea Nitrogen 5 mg/dL (7-20) 4 mg/dL (7-20) Creatinine 0.8 mg/dL (0.6-1.0) 0.7 mg/dL (0.6-1.0) Estimated GFR (Cockcroft-Gault) 85.4 99.6 BUN/Creatinine Ratio 6 (6-20) Glucose Level 94 mg/dL (70-99) 86 mg/dL (70-99) Lactic Acid Level 0.9 mmol/L (0.4-2.0) Calcium Level 8.4 mg/dL (8.5-10.1) 8.4 mg/dL (8.5-10.1) Total Bilirubin 0.5 mg/dL (0.2-1.0) 0.6 mg/dL (0.2-1.0) Aspartate Amino Transf (AST/SGOT) 33 U/L (15-37) 44 U/L (15-37) Alanine Aminotransferase (ALT/SGPT) 37 U/L (14-59) 49 U/L (14-59) Alkaline Phosphatase 112 U/L (46-116) 109 U/L (46-116) Total Protein 7.1 g/dL (6.4-8.2) 6.7 g/dL (6.4-8.2) Albumin 3.7 g/dL (3.4-5.0) 3.5 g/dL (3.4-5.0) Albumin/Globulin Ratio 1.1 (1.0-1.7) Lipase 148 U/L (73-393) Direct Bilirubin 0.3 mg/dL (0.0-0.2) Laboratory Tests Test 12/13/17 03:15 White Blood Count 7.6 x10^3/uL (4.0-11.0) Red Blood Count 4.01 x10^6/uL (3.50-5.40) Hemoglobin 12.0 g/dL (12.0-15.5) Hematocrit 34.9 % (36.0-47.0) Mean Corpuscular Volume 87 fL (79-100) Mean Corpuscular Hemoglobin 30 pg (25-35) Mean Corpuscular Hemoglobin Concent 34 g/dL (31-37) Red Cell Distribution Width 13.0 % (11.5-14.5) Platelet Count 227 x10^3/uL (140-400) Neutrophils (%) (Auto) 47 % (31-73) Lymphocytes (%) (Auto) 46 % (24-48) Monocytes (%) (Auto) 5 % (0-9) Eosinophils (%) (Auto) 3 % (0-3) Basophils (%) (Auto) 0 % (0-3) Neutrophils # (Auto) 3.6 x10^3uL (1.8-7.7) Lymphocytes # (Auto) 3.5 x10^3/uL (1.0-4.8) Monocytes # (Auto) 0.3 x10^3/uL (0.0-1.1) Eosinophils # (Auto) 0.2 x10^3/uL (0.0-0.7) Basophils # (Auto) 0.0 x10^3/uL (0.0-0.2) Sodium Level 140 mmol/L (136-145) Potassium Level 3.8 mmol/L (3.5-5.1) Chloride Level 105 mmol/L (98-107) Carbon Dioxide Level 23 mmol/L (21-32) Anion Gap 12 (6-14) Blood Urea Nitrogen 4 mg/dL (7-20) Creatinine 0.7 mg/dL (0.6-1.0) Estimated GFR (Cockcroft-Gault) 99.6 Glucose Level 86 mg/dL (70-99) Calcium Level 8.4 mg/dL (8.5-10.1) Total Bilirubin 0.6 mg/dL (0.2-1.0) Direct Bilirubin 0.3 mg/dL (0.0-0.2) Aspartate Amino Transf (AST/SGOT) 44 U/L (15-37) Alanine Aminotransferase (ALT/SGPT) 49 U/L (14-59) Alkaline Phosphatase 109 U/L (46-116) Total Protein 6.7 g/dL (6.4-8.2) Albumin 3.5 g/dL (3.4-5.0) DANIELLA BEGUM MD Dec 13, 2017 10:52
[2017-12-13] MEDS ORDERED: HEPARIN 1,000 UNIT in IV NORMAL SALINE 1,000 ML for SURG PERIOP IRR ONE (11:00)
[2017-12-13] MEDS ORDERED: NEOSTIGMINE METHYLSULFATE 5 MG/5 ML SYRINGE. ONE (11:34)
[2017-12-13] MEDS ORDERED: GLYCOPYRROLATE 1 MG/5 ML VIAL. ONE (11:34)
--- NOTE | 2017-12-13 12:01 | RAD ---
EXAM: Intraoperative cholangiogram. HISTORY: Cholecystectomy. COMPARISON: None. FINDINGS: 2 fluoroscopic images were obtained during an intraoperative cholangiogram. The total fluoroscopy time is 15 seconds. The images demonstrate contrast desiccation of the biliary tree and proximal duodenum. No retained stone is seen. There is segmental narrowing of the distal common bile duct extending to the ampulla. IMPRESSION: 1. Intraoperative cholangiogram without evidence of a retained stone. 2. Segmental narrowing of the downstream common bile duct extending to the ampulla. This may be due to a spasm or stricture. Electronically signed by: Rosanne De La Cruz MD (12/13/2017 11:58 AM) [id number]
[2017-12-13] MEDS ORDERED: HYDROcodone/APAP 5/325MG 1 TAB TABLET PO PRN (12:15)
[2017-12-13] MEDS ORDERED: 0.9 % SODIUM CHLORIDE 10 ML DISP.SYRIN. IV PRN (12:15)
[2017-12-13] MEDS ORDERED: DEXTROSE 50% 25 GM / 50ML DISP.SYRIN. IV PRN (12:15)
[2017-12-13] MEDS ORDERED: DESFLURANE 61 TO 120 MINUTES IH ONE (12:15)
--- NOTE | 2017-12-13 12:21 | PDOC4 ---
OPERATIVE NOTE Date: Date: Dec 13, 2017 Pre-Op Diagnosis: Symptomatic cholelithiasis Post-Op Diagnosis: calculous cholecystitis Procedure Performed: Laparoscopic cholecystectomy with cholangiogram Surgeon: René Begum Anesthesia Type: GETA plus local Blood Loss: 50 Specimans Obtained: gallbladder Findings: adhesions to gallbladder neck, gallstones, spasm of distal CBD Complications: none Operative Note: After obtaining informed consent, patient was taken to OR, induced under GETA and prepped in the usual fashion. 5 mm port placed umbilical and RUQ, 12 port placed epigastric, under laparoscopic guidance. Abdominal cavity explored and otherwise unremarkable. Gallbladder with adhesions, taken down sharply. Suspect gallstones in cystic duct, milked back into gallbladder. Critical view dissected out. Cystic artery, anterior and posterior, ligated with clips. Cholangiogram obtained via cystic duct and demonstrated some spasm distal CBD. Cystic duct ligated with hemolok and clips. Gallbladder taken off fossa using cautery, placed in bag, delivered and sent to pathology for evaluation. Copious irrigation. No evidence of bleeding or other pathology. Ports removed without bleeding. Fascia repaired with 0 vicryl. Skin repaired with 4 0 monocryl. Dressing applied. Patient tolerated procedure well and sent to PACU in stable condition. All counts correct. DANIELLA BEGUM MD Dec 13, 2017 12:21
[2017-12-13] MEDS ORDERED: PROCHLORPERAZINE 10 MG/2 ML VIAL. ONE (12:25)
[2017-12-13] MEDS: fentaNYL PF VIAL 100 MCG/2 ML VIAL IV PRN ×6 (12:27→20:40)
[2017-12-13] MEDS ORDERED: MORPHINE SULFATE 2 MG/ML VIAL. ONE ×2 (12:43→13:36)
[2017-12-13] MEDS: MORPHINE SULFATE 2 MG/ML VIAL. IV PRN ×3 (12:46→13:40)
[2017-12-13] MEDS: HYDROcodone/APAP 5/325MG 1 TAB TABLET PO PRN ×3 (14:09→23:31)
[2017-12-13] MEDS: DOCUSATE SODIUM 100 MG CAPSULE. PO SCH ×2 (14:09→20:22)
--- NOTE | 2017-12-13 14:41 | PDOC ---
PROGRESS NOTES Chief Complaint Chief Complaint ABD pain with cholelithiasis s/p lap viridiana 12/13 possible acute cholecystitis morbid obesity h/o stroke wo deficit h/o seizure plan: fu with sx, sx tmr card consult pre op ivf diet as per sx ? pain control dvt ppx echo ok head ct neg. History of Present Illness History of Present Illness sx today Vitals Vitals Vital Signs Date Time Temp Pulse Resp B/P (MAP) Pulse Ox O2 Delivery O2 Flow Rate FiO2 12/13/17 14:09 99 Room Air 2.0 12/13/17 13:40 16 12/13/17 13:34 68 130/72 12/13/17 13:19 98.3 98.3 Physical Exam General: Alert, Oriented X3, Cooperative, No acute distress Heart: Regular rate (SR), Normal S1, Normal S2, No murmurs Lungs: Clear Abdomen: Soft, Other (RUQ tenderness) Extremities: No cyanosis, No edema Skin: No breakdown, No significant lesion Labs LABS Laboratory Tests Test 12/13/17 03:15 White Blood Count 7.6 x10^3/uL (4.0-11.0) Red Blood Count 4.01 x10^6/uL (3.50-5.40) Hemoglobin 12.0 g/dL (12.0-15.5) Hematocrit 34.9 % (36.0-47.0) Mean Corpuscular Volume 87 fL (79-100) Mean Corpuscular Hemoglobin 30 pg (25-35) Mean Corpuscular Hemoglobin Concent 34 g/dL (31-37) Red Cell Distribution Width 13.0 % (11.5-14.5) Platelet Count 227 x10^3/uL (140-400) Neutrophils (%) (Auto) 47 % (31-73) Lymphocytes (%) (Auto) 46 % (24-48) Monocytes (%) (Auto) 5 % (0-9) Eosinophils (%) (Auto) 3 % (0-3) Basophils (%) (Auto) 0 % (0-3) Neutrophils # (Auto) 3.6 x10^3uL (1.8-7.7) Lymphocytes # (Auto) 3.5 x10^3/uL (1.0-4.8) Monocytes # (Auto) 0.3 x10^3/uL (0.0-1.1) Eosinophils # (Auto) 0.2 x10^3/uL (0.0-0.7) Basophils # (Auto) 0.0 x10^3/uL (0.0-0.2) Sodium Level 140 mmol/L (136-145) Potassium Level 3.8 mmol/L (3.5-5.1) Chloride Level 105 mmol/L (98-107) Carbon Dioxide Level 23 mmol/L (21-32) Anion Gap 12 (6-14) Blood Urea Nitrogen 4 mg/dL (7-20) Creatinine 0.7 mg/dL (0.6-1.0) Estimated GFR (Cockcroft-Gault) 99.6 Glucose Level 86 mg/dL (70-99) Calcium Level 8.4 mg/dL (8.5-10.1) Total Bilirubin 0.6 mg/dL (0.2-1.0) Direct Bilirubin 0.3 mg/dL (0.0-0.2) Aspartate Amino Transf (AST/SGOT) 44 U/L (15-37) Alanine Aminotransferase (ALT/SGPT) 49 U/L (14-59) Alkaline Phosphatase 109 U/L (46-116) Total Protein 6.7 g/dL (6.4-8.2) Albumin 3.5 g/dL (3.4-5.0) Comment Review of Relevant I have reviewed the following items sofia (where applicable) has been applied. Labs Laboratory Tests Test 12/12/17 01:30 12/12/17 05:30 12/13/17 03:15 Urine Test Negative (NEG) White Blood Count 10.4 x10^3/uL (4.0-11.0) 7.6 x10^3/uL (4.0-11.0) Red Blood Count 4.14 x10^6/uL (3.50-5.40) 4.01 x10^6/uL (3.50-5.40) Hemoglobin 12.6 g/dL (12.0-15.5) 12.0 g/dL (12.0-15.5) Hematocrit 35.6 % (36.0-47.0) 34.9 % (36.0-47.0) Mean Corpuscular Volume 86 fL (79-100) 87 fL (79-100) Mean Corpuscular Hemoglobin 30 pg (25-35) 30 pg (25-35) Mean Corpuscular Hemoglobin Concent 35 g/dL (31-37) 34 g/dL (31-37) Red Cell Distribution Width 12.9 % (11.5-14.5) 13.0 % (11.5-14.5) Platelet Count 242 x10^3/uL (140-400) 227 x10^3/uL (140-400) Neutrophils (%) (Auto) 48 % (31-73) 47 % (31-73) Lymphocytes (%) (Auto) 44 % (24-48) 46 % (24-48) Monocytes (%) (Auto) 6 % (0-9) 5 % (0-9) Eosinophils (%) (Auto) 2 % (0-3) 3 % (0-3) Basophils (%) (Auto) 0 % (0-3) 0 % (0-3) Neutrophils # (Auto) 5.0 x10^3uL (1.8-7.7) 3.6 x10^3uL (1.8-7.7) Lymphocytes # (Auto) 4.6 x10^3/uL (1.0-4.8) 3.5 x10^3/uL (1.0-4.8) Monocytes # (Auto) 0.6 x10^3/uL (0.0-1.1) 0.3 x10^3/uL (0.0-1.1) Eosinophils # (Auto) 0.2 x10^3/uL (0.0-0.7) 0.2 x10^3/uL (0.0-0.7) Basophils # (Auto) 0.0 x10^3/uL (0.0-0.2) 0.0 x10^3/uL (0.0-0.2) Sodium Level 139 mmol/L (136-145) 140 mmol/L (136-145) Potassium Level 4.2 mmol/L (3.5-5.1) 3.8 mmol/L (3.5-5.1) Chloride Level 105 mmol/L (98-107) 105 mmol/L (98-107) Carbon Dioxide Level 26 mmol/L (21-32) 23 mmol/L (21-32) Anion Gap 8 (6-14) 12 (6-14) Blood Urea Nitrogen 5 mg/dL (7-20) 4 mg/dL (7-20) Creatinine 0.8 mg/dL (0.6-1.0) 0.7 mg/dL (0.6-1.0) Estimated GFR (Cockcroft-Gault) 85.4 99.6 BUN/Creatinine Ratio 6 (6-20) Glucose Level 94 mg/dL (70-99) 86 mg/dL (70-99) Lactic Acid Level 0.9 mmol/L (0.4-2.0) Calcium Level 8.4 mg/dL (8.5-10.1) 8.4 mg/dL (8.5-10.1) Total Bilirubin 0.5 mg/dL (0.2-1.0) 0.6 mg/dL (0.2-1.0) Aspartate Amino Transf (AST/SGOT) 33 U/L (15-37) 44 U/L (15-37) Alanine Aminotransferase (ALT/SGPT) 37 U/L (14-59) 49 U/L (14-59) Alkaline Phosphatase 112 U/L (46-116) 109 U/L (46-116) Total Protein 7.1 g/dL (6.4-8.2) 6.7 g/dL (6.4-8.2) Albumin 3.7 g/dL (3.4-5.0) 3.5 g/dL (3.4-5.0) Albumin/Globulin Ratio 1.1 (1.0-1.7) Lipase 148 U/L (73-393) Direct Bilirubin 0.3 mg/dL (0.0-0.2) Laboratory Tests Test 12/13/17 03:15 White Blood Count 7.6 x10^3/uL (4.0-11.0) Red Blood Count 4.01 x10^6/uL (3.50-5.40) Hemoglobin 12.0 g/dL (12.0-15.5) Hematocrit 34.9 % (36.0-47.0) Mean Corpuscular Volume 87 fL (79-100) Mean Corpuscular Hemoglobin 30 pg (25-35) Mean Corpuscular Hemoglobin Concent 34 g/dL (31-37) Red Cell Distribution Width 13.0 % (11.5-14.5) Platelet Count 227 x10^3/uL (140-400) Neutrophils (%) (Auto) 47 % (31-73) Lymphocytes (%) (Auto) 46 % (24-48) Monocytes (%) (Auto) 5 % (0-9) Eosinophils (%) (Auto) 3 % (0-3) Basophils (%) (Auto) 0 % (0-3) Neutrophils # (Auto) 3.6 x10^3uL (1.8-7.7) Lymphocytes # (Auto) 3.5 x10^3/uL (1.0-4.8) Monocytes # (Auto) 0.3 x10^3/uL (0.0-1.1) Eosinophils # (Auto) 0.2 x10^3/uL (0.0-0.7) Basophils # (Auto) 0.0 x10^3/uL (0.0-0.2) Sodium Level 140 mmol/L (136-145) Potassium Level 3.8 mmol/L (3.5-5.1) Chloride Level 105 mmol/L (98-107) Carbon Dioxide Level 23 mmol/L (21-32) Anion Gap 12 (6-14) Blood Urea Nitrogen 4 mg/dL (7-20) Creatinine 0.7 mg/dL (0.6-1.0) Estimated GFR (Cockcroft-Gault) 99.6 Glucose Level 86 mg/dL (70-99) Calcium Level 8.4 mg/dL (8.5-10.1) Total Bilirubin 0.6 mg/dL (0.2-1.0) Direct Bilirubin 0.3 mg/dL (0.0-0.2) Aspartate Amino Transf (AST/SGOT) 44 U/L (15-37) Alanine Aminotransferase (ALT/SGPT) 49 U/L (14-59) Alkaline Phosphatase 109 U/L (46-116) Total Protein 6.7 g/dL (6.4-8.2) Albumin 3.5 g/dL (3.4-5.0) Medications Current Medications Sodium Chloride 1,000 ml @ 100 mls/hr Q10H IV Last administered on 12/13/17at 05:37; Start 12/12/17 at 02:00 Morphine Sulfate (Morphine Sulfate) 2 mg PRN Q2HR PRN IV SEVERE PAIN Last administered on 12/12/17at 20:02; Start 12/12/17 at 01:30 Ondansetron HCl (Zofran) 4 mg PRN Q4HRS PRN IV NAUSEA/VOMITING 1ST CHOICE Last administered on 12/12/17at 22:32; Start 12/12/17 at 01:30 Metronidazole 100 ml @ 100 mls/hr Q12HR IV Last administered on 12/13/17at 09: 06; Start 12/12/17 at 02:00 Ciprofloxacin/ Dextrose 200 ml @ 200 mls/hr Q12HR IV Last administered on 12/13at 07:56; Start 12/12/17 at 02:00 Acetaminophen (Tylenol) 650 mg PRN Q6HRS PRN PO MILD PAIN / TEMP Last administered on 12/12/17at 21:37; Start 12/12/17 at 05:30 Sodium Chloride 500 ml @ 500 mls/hr 1X ONCE IV Last administered on at 05:39; Start 12/12/17 at 06:00; Stop 12/12/17 at 06:59; Status DC Ondansetron HCl (Zofran) 4 mg PRN Q6HRS PRN IV NAUSEA/VOMITING; Start 12/13/17 at 07:00; Stop 12/13/17 at 18:00 Fentanyl Citrate (Fentanyl 2ml Vial) 25 mcg PRN Q5MIN PRN IV MILD PAIN; Start 12/13/17 at 07:00; Stop 12/13/17 at 18:00 Fentanyl Citrate (Fentanyl 2ml Vial) 50 mcg PRN Q5MIN PRN IV MODERATE TO SEVERE PAIN Last administered on 12/13/17at 13:20; Start 12/13/17 at 07:00; Stop 12/13/17 at 18:00 Morphine Sulfate (Morphine Sulfate) 1 mg PRN Q10MIN PRN IV SEVERE PAIN Last administered on 12/13/17at 13:40; Start 12/13/17 at 07:00; Stop 12/13/17 at 18:00 Ringer's Solution 1,000 ml @ 30 mls/hr Q24H IV ; Start 12/13/17 at 07:00; Stop 12/13/17 at 18:59 Lidocaine HCl (Xylocaine-Mpf 1% 2ml Vial) 2 ml PRN 1X PRN ID IV START; Start at 07:00; Stop 12/13/17 at 18:00 Hydromorphone HCl (Dilaudid) 0.5 mg PRN Q10MIN PRN IV SEV PAIN, Second choice; Start 12/13/17 at 07:00; Stop 12/13/17 at 18:00 Prochlorperazine Edisylate (Compazine) 5 mg PACU PRN PRN IV NAUSEA, MRX1; Start 12/13/17 at 07:00; Stop 12/13/17 at 18:00 Cefazolin Sodium/ Dextrose 50 ml @ 100 mls/hr 1X PREOP IV ; Start 12/12/17 at 13:45; Stop 12/12/17 at 16:11; Status DC Ringer's Solution 500 ml @ 500 mls/hr 1X ONCE IV ; Start 12/12/17 at 13:45; Stop 12/12/17 at 14:44; Status DC Acetaminophen/ Hydrocodone Bitart (Lortab 5/325) 1 tab PRN Q4HRS PRN PO MODERATE PAIN Last administered on 12/13/17at 14:09; Start 12/12/17 at 15:00 Heparin Sodium (Porcine) (Heparin Sq) 5,000 unit Q8HRS SQ Last administered on 12/12/17at 19:56; Start 12/12/17 at 15:00 Cefazolin Sodium/ Dextrose 50 ml @ 100 mls/hr 1X PREOP ONCE IV Last administered on 12/13/17at 10:59; Start 12/13/17 at 10:00; Stop 12/13/17 at 10:29 ; Status DC Oxcarbazepine (Trileptal) 150 mg QHS PO Last administered on 12/12/17at 19:59; Start 12/12/17 at 21:00 Non-Formulary Medication (Vortioxetine Hydrobromide (Trintellix)) 10 mg HS PO Last administered on 12/12/17at 20:02; Start 12/12/17 at 21:00 Propofol 20 ml @ As Directed STK-MED ONCE IV ; Start 12/13/17 at 09:40; Stop at 09:41; Status DC Dexamethasone Sodium Phosphate (Decadron) 20 mg STK-MED ONCE .ROUTE ; Start at 09:40; Stop 12/13/17 at 09:41; Status DC Ondansetron HCl (Zofran) 4 mg STK-MED ONCE .ROUTE ; Start 12/13/17 at 09:40; Stop 12/13/17 at 09:41; Status DC Rocuronium [place] (Zemuron) 50 mg STK-MED ONCE .ROUTE ; Start 12/13/17 at 09:40 ; Stop 12/13/17 at 09:41; Status DC Fentanyl Citrate (Fentanyl 2ml Vial) 100 mcg STK-MED ONCE .ROUTE ; Start at 09:40; Stop 12/13/17 at 09:41; Status DC Midazolam HCl (Versed) 2 mg STK-MED ONCE .ROUTE ; Start 12/13/17 at 09:41; Stop 12/13/17 at 09:42; Status DC Bupivacaine HCl/ Epinephrine Bitart (Sensorcain-Mpf Epi 0.5%-1:[id number]) 30 ml STK -MED ONCE .ROUTE Last administered on 12/13/17at 11:50; Start 12/13/17 at 09:12 ; Stop 12/13/17 at 10:13; Status DC Cellulose (Surgicel Hemostat 2x3) 1 each STK-MED ONCE .ROUTE ; Start 12/13/17 at 09:12; Stop 12/13/17 at 10:13; Status DC Iohexol (Omnipaque 300 Mg/ml) 100 ml STK-MED ONCE .ROUTE Last administered on at 11:50; Start 12/13/17 at 09:12; Stop 12/13/17 at 10:13; Status DC Bisacodyl (Dulcolax Supp) 10 mg STK-MED ONCE .ROUTE ; Start 12/13/17 at 09:12; Stop 12/13/17 at 10:13; Status DC Heparin Sodium (Porcine) 1000 unit/Sodium Chloride 1,001 ml @ 1,001 mls/hr 1X ONCE IRR ; Start 12/13/17 at 11:00; Stop 12/13/17 at 11:59; Status DC Succinylcholine Chloride (Anectine) 200 mg STK-MED ONCE .ROUTE ; Start 12/13/17 at 10:52; Stop 12/13/17 at 10:53; Status DC Glycopyrrolate (Robinul) 1 mg STK-MED ONCE .ROUTE ; Start 12/13/17 at 11:34; Stop 12/13/17 at 11:35; Status DC Neostigmine Methylsulfate (Neostigmine Methylsulfate) 5 mg STK-MED ONCE .ROUTE ; Start 12/13/17 at 11:34; Stop 12/13/17 at 11:35; Status DC Fentanyl Citrate (Fentanyl 2ml Vial) 100 mcg STK-MED ONCE .ROUTE ; Start at 11:46; Stop 12/13/17 at 11:47; Status DC Sodium Chloride (Normal Saline Flush) 3 ml QSHIFT PRN IV AFTER MEDS AND BLOOD DRAWS; Start 12/13/17 at 12:15 Dextrose (Dextrose 50%-Water Syringe) 12.5 gm PRN Q15MIN PRN IV SEE COMMENTS; Start 12/13/17 at 12:15 Acetaminophen/ Hydrocodone Bitart (Lortab 5/325) 1 tab PRN Q4HRS PRN PO MILD PAIN; Start 12/13/17 at 12:15 Docusate Sodium (Colace) 100 mg BID PO Last administered on 12/13/17at 14:09; Start 12/13/17 at 13:00 Desflurane (Suprane) 60 ml STK-MED ONCE IH ; Start 12/13/17 at 12:15; Stop 12/13 at 12:17; Status DC Fentanyl Citrate (Fentanyl 2ml Vial) 100 mcg STK-MED ONCE .ROUTE ; Start at 12:25; Stop 12/13/17 at 12:26; Status DC Prochlorperazine Edisylate (Compazine) 10 mg STK-MED ONCE .ROUTE ; Start at 12:25; Stop 12/13/17 at 12:26; Status DC Morphine Sulfate (Morphine Sulfate) 2 mg STK-MED ONCE .ROUTE ; Start 12/13/17 at 12:43; Stop 12/13/17 at 12:44; Status DC Fentanyl Citrate (Fentanyl 2ml Vial) 100 mcg STK-MED ONCE .ROUTE ; Start at 12:56; Stop 12/13/17 at 12:57; Status DC Morphine Sulfate (Morphine Sulfate) 2 mg STK-MED ONCE .ROUTE ; Start 12/13/17 at 13:36; Stop 12/13/17 at 13:37; Status DC Active Scripts Active Reported Oxcarbazepine 300 Mg Tablet 150 Mg PO HS Tizanidine Hcl 4 Mg Tablet 6 Mg PO DAILY PRN Baclofen 10 Mg Tablet 1 Tab PO TID Vistaril (Hydroxyzine Pamoate) 50 Mg Capsule 50 Mg PO HS Trintellix (Vortioxetine) 10 Mg Tablet 10 Mg PO HS Celebrex (Celecoxib) 100 Mg Capsule 1 Cap PO TID Vitals/I & O Vital Sign - Last 24 Hours 12/12/17 12/12/17 12/12/17 12/12/17 15:00 19:00 19:15 20:01 Temp 97.9 98.8 97.9 98.8 Pulse 82 75 Resp 16 16 20 B/P (MAP) 132/83 (99) 147/94 (111) Pulse Ox 100 98 O2 Delivery Room Air Room Air Room Air Room Air 12/12/17 12/12/17 12/12/17 12/12/17 20:02 20:32 21:01 23:00 Temp 98.4 98.4 Pulse 86 Resp 20 16 B/P (MAP) 130/88 (102) Pulse Ox 96 O2 Delivery Room Air Room Air Room Air Room Air 12/13/17 12/13/17 12/13/17 12/13/17 03:00 07:00 08:00 09:45 Temp 98.4 98.8 97.7 98.4 98.8 97.7 Pulse 83 87 84 Resp 16 18 14 B/P (MAP) 123/76 (92) 126/75 (92) 123/80 Pulse Ox 96 95 97 O2 Delivery Room Air Room Air Room Air Room Air 12/13/17 12/13/17 12/13/17 12/13/17 12:19 12:27 12:34 12:35 Temp 98.3 98.3 Pulse 24 79 Resp 18 B/P (MAP) 122/63 120/57 Pulse Ox 99 99 99 99 O2 Delivery Simple Mask Simple Mask Room Air Simple Mask O2 Flow Rate 10 10.0 12/13/17 12/13/17 12/13/17 12/13/17 12:46 12:49 12:59 13:04 Pulse 86 65 Resp 16 18 14 16 B/P (MAP) 128/63 131/64 Pulse Ox 95 93 95 99 O2 Delivery Room Air Room Air Room Air Nasal Cannula O2 Flow Rate 2 12/13/17 12/13/17 12/13/17 12/13/17 13:07 13:19 13:20 13:34 Temp 98.3 98.3 Pulse 77 68 Resp 18 16 16 16 B/P (MAP) 125/72 130/72 Pulse Ox 99 99 99 99 O2 Delivery Nasal Cannula Nasal Cannula Nasal Cannula Room Air O2 Flow Rate 2.0 2 12/13/17 12/13/17 13:40 14:09 Resp 16 Pulse Ox 99 99 O2 Delivery Nasal Cannula Room Air O2 Flow Rate 2.0 2.0 Intake and Output 12/12/17 12/12/17 12/13/17 15:00 23:00 07:00 Intake Total 0 ml Balance 0 ml DAVID SOTELO MD Dec 13, 2017 14:41
[2017-12-13] MEDS: Vortioxetine Hydrobromide (Trintellix) 10 MG PO SCH (20:22)
[2017-12-13] MEDS: OXcarbazepine 300 MG TABLET PO SCH (20:23)
[2017-12-13] MEDS ORDERED: ZOLPIDEM 5 MG TABLET. PO PRN (21:00)
[2017-12-13] MEDS: ACETAMINOPHEN 325 MG TABLET. PO PRN (21:29)
[2017-12-14 03:11] VITALS: BP 125/68
[2017-12-14] MEDS: IV NORMAL SALINE 1000ML BAG 1,000 ML IV SCH (04:00)
[2017-12-14 04:55] LABS: BASO % 0 % (0-3); EOS # 0.1 x10^3/uL (0.0-0.7); EOS % 1 % (0-3); HEMATOCRIT 33.9 % (36.0-47.0); HEMOGLOBIN 11.8 g/dL (12.0-15.5); LYMPH # 4.1 x10^3/uL (1.0-4.8); LYMPH % 30 % (24-48); MEAN CORPUSCULAR HEMOGLOBIN 30 pg (25-35); MEAN CORPUSCULAR HGB CONC 35 g/dL (31-37); MEAN CORPUSCULAR VOLUME 86 fL (79-100); MONO # 0.9 x10^3/uL (0.0-1.1); MONO % 7 % (0-9); NEUT # 8.5 x10^3uL (1.8-7.7); NEUT % 63 % (31-73); PLATELET COUNT 244 x10^3/uL (140-400); RED BLOOD COUNT 3.96 x10^6/uL (3.50-5.40); RED CELL DISTRIBUTION WIDTH 12.9 % (11.5-14.5); WHITE BLOOD COUNT 13.6 x10^3/uL (4.0-11.0)
[2017-12-14 05:50] LABS: CALCIUM 9.1 mg/dL (8.5-10.1); CREATININE 0.6 mg/dL (0.6-1.0); POTASSIUM 3.5 mmol/L (3.5-5.1)
[2017-12-14] MEDS: HEPARIN PF for SUB-Q USE 5,000 UNIT/0.5 ML VIAL. SQ SCH (06:00)
[2017-12-14 07:00] VITALS: BP 119/88
--- NOTE | 2017-12-14 08:16 | PDOC ---
SURGICAL PROGRESS NOTE Subjective Pt reports feeling better, lia diet well, mild soreness epigastric Vital Signs Vital Signs Date Time Temp Pulse Resp B/P (MAP) Pulse Ox O2 Delivery O2 Flow Rate FiO2 12/14/17 03:11 98.1 63 18 125/68 (87) 94 Room Air 98.1 12/13/17 23:31 2.0 I&O Intake and Output 12/14/17 07:00 Intake Total 1790 ml Balance 1790 ml Intake Oral 490 ml IV Total 1300 ml # Voids 6 General: Alert, Oriented X3, Cooperative, No acute distress Abdomen: Soft, No tenderness Labs Laboratory Tests Test 12/13/17 03:15 12/14/17 03:35 12/14/17 03:53 White Blood Count 7.6 x10^3/uL (4.0-11.0) 13.6 x10^3/uL (4.0-11.0) Red Blood Count 4.01 x10^6/uL (3.50-5.40) 3.96 x10^6/uL (3.50-5.40) Hemoglobin 12.0 g/dL (12.0-15.5) 11.8 g/dL (12.0-15.5) Hematocrit 34.9 % (36.0-47.0) 33.9 % (36.0-47.0) Mean Corpuscular Volume 87 fL (79-100) 86 fL (79-100) Mean Corpuscular Hemoglobin 30 pg (25-35) 30 pg (25-35) Mean Corpuscular Hemoglobin Concent 34 g/dL (31-37) 35 g/dL (31-37) Red Cell Distribution Width 13.0 % (11.5-14.5) 12.9 % (11.5-14.5) Platelet Count 227 x10^3/uL (140-400) 244 x10^3/uL (140-400) Neutrophils (%) (Auto) 47 % (31-73) 63 % (31-73) Lymphocytes (%) (Auto) 46 % (24-48) 30 % (24-48) Monocytes (%) (Auto) 5 % (0-9) 7 % (0-9) Eosinophils (%) (Auto) 3 % (0-3) 1 % (0-3) Basophils (%) (Auto) 0 % (0-3) 0 % (0-3) Neutrophils # (Auto) 3.6 x10^3uL (1.8-7.7) 8.5 x10^3uL (1.8-7.7) Lymphocytes # (Auto) 3.5 x10^3/uL (1.0-4.8) 4.1 x10^3/uL (1.0-4.8) Monocytes # (Auto) 0.3 x10^3/uL (0.0-1.1) 0.9 x10^3/uL (0.0-1.1) Eosinophils # (Auto) 0.2 x10^3/uL (0.0-0.7) 0.1 x10^3/uL (0.0-0.7) Basophils # (Auto) 0.0 x10^3/uL (0.0-0.2) 0.0 x10^3/uL (0.0-0.2) Sodium Level 140 mmol/L (136-145) 136 mmol/L (136-145) Potassium Level 3.8 mmol/L (3.5-5.1) 3.5 mmol/L (3.5-5.1) Chloride Level 105 mmol/L (98-107) 100 mmol/L (98-107) Carbon Dioxide Level 23 mmol/L (21-32) 26 mmol/L (21-32) Anion Gap 12 (6-14) 10 (6-14) Blood Urea Nitrogen 4 mg/dL (7-20) 4 mg/dL (7-20) Creatinine 0.7 mg/dL (0.6-1.0) 0.6 mg/dL (0.6-1.0) Estimated GFR (Cockcroft-Gault) 99.6 119.0 Glucose Level 86 mg/dL (70-99) 98 mg/dL (70-99) Calcium Level 8.4 mg/dL (8.5-10.1) 9.1 mg/dL (8.5-10.1) Total Bilirubin 0.6 mg/dL (0.2-1.0) Direct Bilirubin 0.3 mg/dL (0.0-0.2) Aspartate Amino Transf (AST/SGOT) 44 U/L (15-37) Alanine Aminotransferase (ALT/SGPT) 49 U/L (14-59) Alkaline Phosphatase 109 U/L (46-116) Total Protein 6.7 g/dL (6.4-8.2) Albumin 3.5 g/dL (3.4-5.0) Laboratory Tests Test 12/14/17 03:35 12/14/17 03:53 Sodium Level 136 mmol/L (136-145) Potassium Level 3.5 mmol/L (3.5-5.1) Chloride Level 100 mmol/L (98-107) Carbon Dioxide Level 26 mmol/L (21-32) Anion Gap 10 (6-14) Blood Urea Nitrogen 4 mg/dL (7-20) Creatinine 0.6 mg/dL (0.6-1.0) Estimated GFR (Cockcroft-Gault) 119.0 Glucose Level 98 mg/dL (70-99) Calcium Level 9.1 mg/dL (8.5-10.1) White Blood Count 13.6 x10^3/uL (4.0-11.0) Red Blood Count 3.96 x10^6/uL (3.50-5.40) Hemoglobin 11.8 g/dL (12.0-15.5) Hematocrit 33.9 % (36.0-47.0) Mean Corpuscular Volume 86 fL (79-100) Mean Corpuscular Hemoglobin 30 pg (25-35) Mean Corpuscular Hemoglobin Concent 35 g/dL (31-37) Red Cell Distribution Width 12.9 % (11.5-14.5) Platelet Count 244 x10^3/uL (140-400) Neutrophils (%) (Auto) 63 % (31-73) Lymphocytes (%) (Auto) 30 % (24-48) Monocytes (%) (Auto) 7 % (0-9) Eosinophils (%) (Auto) 1 % (0-3) Basophils (%) (Auto) 0 % (0-3) Neutrophils # (Auto) 8.5 x10^3uL (1.8-7.7) Lymphocytes # (Auto) 4.1 x10^3/uL (1.0-4.8) Monocytes # (Auto) 0.9 x10^3/uL (0.0-1.1) Eosinophils # (Auto) 0.1 x10^3/uL (0.0-0.7) Basophils # (Auto) 0.0 x10^3/uL (0.0-0.2) Problem List s/p lap viridiana OK to d/c home diet as tolerated No heavy lifting Remove dressings in AM, OK to shower then. DANIELLA BEGUM MD Dec 14, 2017 08:16
[2017-12-14] MEDS: DOCUSATE SODIUM 100 MG CAPSULE. PO SCH (08:47)
[2017-12-14] MEDS: HYDROcodone/APAP 5/325MG 1 TAB TABLET PO PRN ×2 (08:47→13:16)
[2017-12-14] MEDS: CIPROFLOXACIN 400MG PREMIX 200 ML IV SCH (09:00)
[2017-12-14 11:00] VITALS: BP 115/76
[2017-12-14] MEDS ORDERED: HYDR-2758 PO (11:46)
--- NOTE | 2017-12-14 14:16 | PDOC3 ---
Discharge Summary [facility] Date of Admission: Dec 12, 2017 Discharge Date: Dec 14, 2017 Admitting Diagnosis ABD pain with cholelithiasis s/p lap viridiana 12/13 possible acute cholecystitis morbid obesity h/o stroke wo deficit h/o seizure CONSULTS sx Brief Hospital Course 26yo F, came for abd pain x1d. Pt started to feel RUQ pain, constant, sharp, 5/10 from yesterday, no radiating , had non bloody or bile N/V, bm is ok. no fever, + chills. no cough ,sob, chest pain. remote h/o stroke when delivery her baby, no neurologic deficit. US at [facility] ER showed cholelithiasis. Pt got lap cholecystectomy. has mild pain now, eats ok, no bm post op, has flatus. dc home . dc time 35min. General: Alert, Oriented X3, Cooperative, No acute distress Heart: Regular rate (SR), Normal S1, Normal S2, No murmurs Lungs: Clear Abdomen: Soft, Other (RUQ tenderness) Extremities: No cyanosis, No edema Skin: No breakdown, No significant lesion Disposition home CONDITION AT DISCHARGE: Improved Scheduled Baclofen (Baclofen), 1 TAB PO TID, (Reported) Celecoxib (Celebrex), 1 CAP PO TID, (Reported) Hydroxyzine Pamoate (Vistaril), 50 MG PO HS, (Reported) Oxcarbazepine (Oxcarbazepine), 150 MG PO HS, (Reported) Vortioxetine Hydrobromide (Trintellix), 10 MG PO HS, (Reported) Scheduled PRN Hydrocodone Bit/Acetaminophen (Hydrocodone-Apap 5-325 ), 1 TAB PO PRN Q4HRS PRN for MODERATE PAIN Tizanidine Hcl (Tizanidine Hcl), 6 MG PO DAILY PRN for MUSCLE SPASMS, (Reported) DAVID SOTELO MD Dec 14, 2017 14:16
--- NOTE | 2017-12-17 10:08 | PATHOLOGY ---
[facility] Accession Number: [id number] . 01 Material submitted: . GALLBLADDER . 01 Clinical history: . Cholelithiasis . 02 Diagnosis: Gallbladder, laparoscopic cholecystectomy: - Cholelithiasis. - Chronic cholecystitis. - Reactive changes of gallbladder neck lymph node. (JPM:josé; 12/14/2017) QMS/12/14/2017 . 02 Comment: There is no evidence of malignancy. . 02 Electronically signed: . Surya Keyes MD, Pathologist NPI- [id number] . 01 Gross description: . The specimen is received in formalin, labeled "Clyde, Quyen, gallbladder" and consists of a pink-bailon, smooth, and intact gallbladder with multifocal areas of hemorrhage that measures 8.8 x 3.5 x 3.0 cm. Opening reveals the lumen is filled with tenacious green bile and multiple mulberry yellow calculi measuring up to 1.0 cm and 3.8 x 3.0 x 0.6 cm in aggregate. The mucosa is uribe-green with yellow highlights and a wall thickness of 0.1 cm. No masses or lesions are identified. A single lymph node candidate is identified adjacent to the gallbladder neck measuring 0.5 x 0.5 cm. Table Machine Operator sections including the lymph node (bisected) are submitted in A1. (SDY; 12/13/2017) SYU/SYU . 02 Pathologist provided ICD-10: K80.10 . 02 CPT . 204690 Specimen Comment: A courtesy copy of this report has been sent to Specimen Comment: [phone], , . Specimen Comment: Report sent to ,DR HERNANDEZ / DR ZUNIGA Performed at: 01 [facility] [place] [id number] [facility] [address], [place], [place] [id number] MD Darin Kidd MD Phone: [phone] Performed at: 02 [facility] [address] [place], [place] [id number] MD Surya Keyes MD Phone: [phone]
== END 2017-12-14 13:30 | disposition home or self-care (01) | DRG 417 ==
LOC: 4 NORTH 00:41
PROVIDERS: ADMIT Internal Medicine; ATTEND Internal Medicine
PROC: BF101ZZ Fluoroscopy of Bile Ducts using Low Osmolar Contrast (ICD-10-PCS; 2017-12-13)
PROC: 0FT44ZZ Resection of Gallbladder, Percutaneous Endoscopic Approach (ICD-10-PCS; principal; 2017-12-13 10:30)
DX: K80.00 Calculus of gallbladder with acute cholecystitis without obstruction (principal); R65.11 Systemic inflammatory response syndrome (SIRS) of non-infectious origin with acute organ dysfunction; E66.01 Morbid (severe) obesity due to excess calories; G40.909 Epilepsy, unspecified, not intractable, without status epilepticus; I10 Essential (primary) hypertension; M19.90 Unspecified osteoarthritis, unspecified site; K58.9 Irritable bowel syndrome, unspecified; K82.8 Other specified diseases of gallbladder; Z88.8 Allergy status to other drugs, medicaments and biological substances; Z91.018 Allergy to other foods; Z68.32 Body mass index [BMI] 32.0-32.9, adult; Z79.899 Other long term (current) drug therapy; Z90.49 Acquired absence of other specified parts of digestive tract; Z86.73 Personal history of transient ischemic attack (TIA), and cerebral infarction without residual deficits
CPT/HCPCS: 36415; 70450; 74300; 80048; 80053; 80076; 81025; 83605; 83690; 85025; 88304; 93005; 93306; J0330; J0690; J0744; J1100; J2250; J2270; J2405; J2704; J2710; J3010; J3490; J7030; J7040; J7120; Q9967

== ENCOUNTER → 2019-02-10 | Outpatient (CLI) | payer OTHER ==
[~2019-02-10] MED LIST: BACL10TA PO; CELE100C PO; HYDR-2761 PO; HYDR50CA PO; OXCA300T19 PO; TIZA4TAB2 PO; VORT10TA PO
--- NOTE | 2019-02-11 09:48 | KCIC ---
Magnetic resonance angiography of the [place] without contrast 02/11/2019 INDICATION: Known arteriovenous malformation. COMPARISON: CT head 12/12/2017 TECHNIQUE: Diffusion-weighted images and axial FLAIR images were obtained. Noncontrast, flight magnetic resonance angiography of the [place] was obtained. Maximum intensity projection images are provided. Stenosis calculations for CT, MR, and conventional angiography are based upon measurements of the distal ICA diameter in accordance with the NASCET methodology. Stenosis calculations for carotid ultrasound studies are derived from validated velocity criteria which are known to correlate with the NASCET methodology. FINDINGS: There is no diffusion signal hyperintensity suggest acute or subacute ischemia. No significant signal alteration is identified on axial FLAIR images. Intracranial segments of internal carotid arteries are mildly irregular compatible with mild atherosclerotic changes. There is mild ectasia of the origin of the left ophthalmic segment. Middle cerebral arteries are normal in course and caliber with patent sylvian branches. Anterior cerebral arteries are normal in course and caliber. Left vertebral artery is dominant. Left posterior inferior cerebellar arteries are visualized. Superior cerebellar arteries are patent. Basilar artery is normal in course and caliber. Bilateral P1 segments of the posterior cerebral arteries are present. Posterior cerebral arteries are normal in course and caliber. No definite early draining veins to suggest arteriovenous malformation. There is no aneurysm or high-grade stenosis/large vessel occlusion. IMPRESSION: A definite arterial venous malformation is not visualized. Correlate with any prior history of treatment. Comparison with prior MRI may be of benefit if available. Electronically signed by: Roma Lopez MD (02/11/2019 9:45 AM) [id number]
== END | disposition home or self-care (01) ==
LOC: KCIC MRI 15:39
PROVIDERS: ATTEND Family Medicine
DX: Q28.2 Arteriovenous malformation of cerebral vessels (principal)
CPT/HCPCS: 70544